=== PATIENT | male | born 1985 | race Caucasian/White ===

== ENCOUNTER 2020-02-04 20:52 | Emergency (ER) | payer SELFPAY ==
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
[2020-02-04] MEDS ORDERED: Lidocaine 1% 30 ML SDV INJECT ONE (21:00)
== END 2020-02-04 21:40 ==
LOC: DL.ED 20:52
DX: S01.112A Laceration without foreign body of left eyelid and periocular area, initial encounter (principal); Y04.0XXA Assault by unarmed brawl or fight, initial encounter
CPT/HCPCS: 12011; 99283; J2001; 99282